=== PATIENT | female | born 1995 | race Caucasian/White ===

== ENCOUNTER 2025-05-22 02:51 | Emergency (ER) | payer SELFPAY ==
[~2025-05-22] VITALS: Ht 154.9 cm; Wt 54.0 kg
[2025-05-22 03:59] VITALS: BP 116/70; TEMP 98.2; O2SAT 99
== END 2025-05-22 05:09 | disposition home or self-care (01) ==
LOC: ER 02:54
DX: S61.214A Laceration without foreign body of right ring finger without damage to nail, initial encounter (principal); Z60.2 Problems related to living alone; W26.8XXA Contact with other sharp object(s), not elsewhere classified, initial encounter; Y93.89 Activity, other specified; Y92.89 Other specified places as the place of occurrence of the external cause; Y99.8 Other external cause status

== ENCOUNTER 2025-05-23 12:48 | Emergency (ER) | payer SELFPAY ==
[~2025-05-23] VITALS: Ht 165.1 cm; Wt 61.2 kg
[2025-05-23 12:57] VITALS: BP 125/59; TEMP 98
[2025-05-23] MEDS ORDERED: TDAP [DIPH/PERTUSSIS/TET] 0.5 ML VIAL IM ONE (13:09)
[2025-05-23 13:14] VITALS: O2SAT 98
[2025-05-23] MEDS: TDAP [DIPH/PERTUSSIS/TET] 0.5 ML VIAL IM ONE (13:14)
== END 2025-05-23 13:15 | disposition home or self-care (01) ==
LOC: ER 12:48
DX: Z23 Encounter for immunization (principal); Z60.2 Problems related to living alone
CPT/HCPCS: 90715